=== PATIENT | male | born 1950 | race Two or more races ===

== ENCOUNTER 2019-04-10 15:16 | Inpatient (IN) | payer OTHER ==
[~2019-04-10] VITALS: Ht 162.6 cm; Wt 56.7 kg
[2019-04-17] MEDS ORDERED: OMEPRAZOLE MAGN20 MG PO (09:35)
[2019-04-17] MEDS ORDERED: CLONAZEPAM0.5 MG PO (09:35)
[2019-04-17] MEDS ORDERED: ZESTRIL20 MG PO (09:35)
[2019-05-09] MEDS ORDERED: OXYC1TAB9 PO (11:39)
[2019-05-09] MEDS ORDERED: HYOSCYAMINE0.125 M1 SL (11:39)
== END 2019-05-09 14:34 | disposition home or self-care (01) | DRG 331 ==
LOC: SURH 05-07 09:15 → O/R 05-07 09:15 → SURG 05-07 10:30 → SURH 05-07 17:28
PROVIDERS: ADMIT Surgery
PROC: 07TC4ZZ Resection of Pelvis Lymphatic, Percutaneous Endoscopic Approach (ICD-10-PCS; 2019-05-07)
PROC: 0DJD8ZZ Inspection of Lower Intestinal Tract, Via Natural or Artificial Opening Endoscopic (ICD-10-PCS; 2019-05-07)
PROC: 0DTN4ZZ Resection of Sigmoid Colon, Percutaneous Endoscopic Approach (ICD-10-PCS; principal; 2019-05-07 14:45)
DX: C19 Malignant neoplasm of rectosigmoid junction (principal); K63.89 Other specified diseases of intestine; R59.0 Localized enlarged lymph nodes; I10 Essential (primary) hypertension

== ENCOUNTER 2019-07-13 05:23 | Day surgery (SDC) | payer OTHER ==
[~2019-07-13 05:23] MED LIST: CLONAZEPAM0.5 MG PO; HYOSCYAMINE0.125 M1 SL; OMEPRAZOLE MAGN20 MG PO; OXYC1TAB9 PO; PERCOCET 5-3251 EACH PO; ZESTRIL20 MG PO
[2019-07-13] MEDS ORDERED: ULTRACET PO (08:41)
== END 2019-07-13 10:40 | disposition home or self-care (01) ==
LOC: CIR.AMB 05:23
DX: C18.7 Malignant neoplasm of sigmoid colon (principal)
CPT/HCPCS: 36561; C1751